=== PATIENT | male | born 1950 | race Caucasian/White ===

== ENCOUNTER 2017-11-30 06:52 | Outpatient (CLI) | payer OTHER ==
--- NOTE | 2017-11-30 11:30 | MRI ---
EXAM: Lumbar spine MRI without contrast. HISTORY: Chronic low back pain with right sciatica. COMPARISON: None. TECHNIQUE: Multiplanar, multisequence MR images were acquired of the lumbar spine without contrast. FINDINGS: Conus medullaris ends at T12-L1 and has normal signal intensity pre canal diameter is deve lopmentally narrow. Five non-rib bearing lumbar vertebra are present. The lumbar vertebra normal in height, AP alignment and intrinsic bone marrow signal. Small benign intraosseous hemangiomas are pr esent at L1 and L3. There is 1.2 mm anterolisthesis of L4 on L5 and a trace retrolisthesis of L5 on S1. There is minor ventral spondylosis in the lumbar spine with focal modic type 1 anterior endplate changes along the inferior L2 anterior endplates. At L4-5, there is mild disc space narrowing and di sc desiccation. At L5-S1, there is mild disc space narrowing. Central disc dessication is present in the remaining lumbar intervertebral discs. The partially visualized liver, spleen and kidneys are unremarkable. No paravertebral masses are pres ent. L1-2: The intervertebral disc is normal. Neural foramina are patent. L2-3: There is a minor disc bulge that is asymmetric to the left which minimally narrows the inferio r neural foramina, greater on the left. There is no central canal stenosis. L3-4: There is minor disc bulge that is asymmetric to the left which minimally narrows the inferior left neural foramen. There is no central canal stenosis. L4-5: There is a mild disc bulge with a right lateral annular fissure and mild to moderate bilateral hypertrophic facet arthropathy and moderate bilateral ligamentum flavum hypertrophy. There is mild bright STIR signal edema around both facet joints and there are small left and tiny right facet effus ions. There is a small synovial cyst along the left L5 lamina at its junction with the L5 posterior spinous process. In this patient with a developmentally narrow canal, these findings cause severe ce ntral canal stenosis and mild to moderate right and mild left neural foraminal stenosis.. AP diamete r of the thecal sac is 3.9 mm. L5-S1: There is a trace retrolisthesis of L5 on S1 which produces minor effacement of the anterior e pidural fat. There is mild tapering of the thecal sac at this level which is small and the thecal sa c ends at S2-3. Mild bilateral facet arthropathy and ligamentum flavum hypertrophy is present withou t foraminal stenosis. IMPRESSION: 1. 1.2 mm anterolisthesis L4 on L5 due to moderate bilateral hypertrophic facet arthropathy which ca uses severe central canal stenosis. 2. Mild to moderate right L4-5 neural foraminal stenosis.
== END 2017-11-30 06:53 | disposition home or self-care (01) ==
LOC: RAD 06:52
PROVIDERS: ATTEND Family Medicine
DX: M54.41 Lumbago with sciatica, right side (principal); G89.29 Other chronic pain

== ENCOUNTER 2017-12-23 08:09 | Outpatient (CLI) ==
--- NOTE | 2017-12-23 11:11 | MRI ---
EXAM: MRI left knee without contrast. HISTORY: Left knee pain. No known recent injury. Meniscus repair 2006. Pain when walking.. TECHNIQUE: Using a local extremity coil on a high field strength magnet multiplanar multisequence MR I was performed of the left knee without intravenous or intra-articular gadolinium contrast. FINDINGS: I do not have prior radiographs of the left knee available for comparison at the time of t his dictation. Within the medial compartment there is partial meniscectomy change involving the posterior horn media l meniscus. This extends to involve the body. Correlate with operative history. Small meniscal fla p tear component displaced over the inferior recess involving the body. Horizontal oblique increased intrameniscal signal along the posterior horn medial meniscus which may reflect stable fibrovascular scar verse recurrent/residual horizontal oblique cleavage tear.. Chondrosis and cartilage ulceratio n over the weightbearing medial tibial plateau. Early productive osteophyte formation. Focal chondr osis with subchondral remodeling/cyst formation posterior nonweight bearing medial femoral condyle. Within the lateral compartment lateral meniscus is intact without discrete surfacing meniscal tear. Focal chondrosis/shallow cartilage ulceration measuring 11 mm over the weightbearing lateral tibial p lateau. Early productive osteophyte formation. Within the patellofemoral compartment the patella seated. The patellar chondrosis/chondromalacia pat [place]w extending from median ridge over the medial facet with cartilage ulceration. Focal subchondral edema over the median ridge. Chondrosis over the superior aspect of the central to medial trochlear groove. Early productive osteophyte formation. Small left effusion. No large osteochondral loose bodies. Arthrofibrosis Hoffa's fat pad. Intact A CL and PCL fibers showing normal orientation. The extensor mechanism is intact. The medial collater al ligament as well as lateral collateral ligament complex and posterolateral corner intact. Complex posterior joint extension/popliteal cyst. Question prior leak/rupture with surrounding posterior so ft tissue edema . Artifact along the skin surface posterolateral corner below the joint line. This may be secondary to foreign body within the soft tissues or overlying the patient. Correlate clinica lly. IMPRESSION: Partial meniscectomy change involving the posterior horn medial meniscus. This extends to involve the body. Correlate with operative history. Small meniscal flap tear component displaced over the inferior recess involving the body. Stable fibrovascular scar verse recurrent/residual hori zontal oblique cleavage tear posterior horn medial meniscus as well. Changes of tricompartmental osteoarthrosis, medial and patellofemoral compartment dominant as describ ed. Small left effusion. Arthrofibrosis Hoffa's fat pad. Intact cruciate and collateral ligaments. Complex posterior joint extension/popliteal cyst. Question prior leak/rupture with surrounding poste rior soft tissue edema. Recommendation is obtainment and correlation with plain film radiographs of the left knee as none are available for comparison at the time of this dictation.
== END 2017-12-23 08:10 | disposition home or self-care (01) ==
LOC: RAD 08:09
PROVIDERS: ATTEND Family Medicine
DX: M25.562 Pain in left knee (principal)

== ENCOUNTER 2018-03-10 11:00 | Outpatient (RCR) ==
--- NOTE | 2018-02-28 13:29 | RS.OPPTEV2 ---
Date of Note: 02/28/18 Visit #: 1 Date of Evaluation: 02/28/18 Payer Source: MEDICARE Treatment Diagnosis: Low back pain with right LE radiating symptoms. History of Condition/Mechanism of Injury:: Patient reports progressive low back pain with right LE radiating pain for several months. Reports no injury to the low back. Prior Level of Function.....Patient was independent with: ADL's, Self Care, Caregiving, Ambulation/Mobility, Community Integration/Access Functional Limitations: Lifting, Sitting, Standing, Ambulation, Community Access /Integration Current Subjective/complaints:: Patient reports having progressive low back pain and symptoms into the right LE. States right LE pain has been constant for about 3 months. He denies tingling or numbness, or weakness in the LE's. States right LE pain runs from the buttock to the back of the knee. States he has not had any injections at this time. He has gone to a chiropractor a few times, which did not give any lasting relief. Reports symptoms are worse with standing and walking. Medical History Medical History: Hypertension, Diabetes, Arthritis Surgical History Comments:: left knee meniscus repair one month ago, previous right knee meniscus repair, right RTC surgery, Left DeQuervain's surgery, CABG 3 years ago. Smoking Status: Never smoker Diagnostic Testing/Imaging:: MRI of lumbar spine w/o contrast on 11/30/17: Impression: 1.2 mm anterolisthesis of L4 on L5 due to moderate bilateral hypertrophic facet arthropathy with causes severe central canal stenosis. Mild to moderate right L4-5 neural foraminal stenosis. Hx Home Medications: Metformin, aspirin, lopressor, lipitor, lisinopril Patient's Goals: Goal is to get relief of right LE and back pain. Pain Assessment - Pain Description Pain Location: low back and right LE Current Pain Intensity: 7/10 Worst Pain Intensity: 9/10 Functional Outcome Measure Oswestry LBP: 46 - G Codes & Severity Modifier G Codes & Modifier: Mobility current CK. Mobility goal CI Source of G Code score: Oswesty LBP scale Gait - Gait Pattern General Gait Pattern Observation: No Deviations/Normal Gait Comments: Ambulates without assistive device. - ROM Comments: Lumbar flexion is WFL's, with most ROM coming from the hips. Demonstrates minimal flexion of the lumbar spine due to muscle guarding. Lumbar extension and right sidebending reproduces pain. Demonstrates good ROM at bilateral hips. - Strength Trunk Rotation: 4 Good Comments: Bilateral LE strength is 5/5. - Special Tests MARILYN Test: Negative Left, Negative Right SLR Test: Negative Left, Positive Right Seated Dural Stretch Test: Negative Left, Positive Right SI Joint Compression: Negative SI Joint Distraction: Negative Palpation Comments:: Patient with tenderness with palpation to the superior gluteal musculature and with central PA's along the lumbar spine at ~ L2-L4. Demonstrates moderate muscle guarding along the lumbar paraspinals bilaterally. Sensation - Sensation Right Lower Extremity: Intact/Normal Left Lower Extremity: Intact/Normal Additional Comments: Additional Comments: SLR in spine bilaterally to 50 degrees. Interventions - Exercise/Activities/Manual Therapy Exercises/Activities: Patient instructed in SKTC, HS, and lower trunk rotation stretch. Instructed to perform SKTC and HS on both legs, but the trunk rotation stretch to the left only. Manual Therapy: NA HOME EXERCISE PROGRAM: SKTC and HS on both legs, but the trunk rotation stretch to the left only. - Charges Timed Code Treatment Minutes: 0 Total Treatment Time: 40 mins Procedures billed for this date of service:: EVAL Low EVALUATION COMPLEXITY LEVEL EVALUATION COMPLEXITY LEVEL: HISTORY: Low, EXAM OF BODY SYSTEMS: Low, CLINICAL PRESENTATION: Low, CLINICAL DECISION MAKING: Low Assessment Assessment: Patient presents to therapy with a diagnosis of spinal stenosis of the lumbar region, degeneration of lumbar intervertebral disc. He presents with reports of right low back and LE pain. Right LE pain is constant. Describes limited tolerance for standing and walking due to increased pain. He presents with limited lumbar flexion due to moderate muscle guarding along the lumbar spine. Demonstrates potential to benefit from HS stretching to reduce pressure on the spine. MRI shows L4-5 with severe central canal stenosis and mild to moderate right and mild left neural foraminal stenosis. Patient may also benefit from lumbar traction, as ordered, to get relief of symptoms. Patient Education: Education of diagnosis, Body/Joint mechanics, Home Exercise Program, Home Safety, Activity Modification, Education of Plan of Care Rehab Potential: Good Short Term Goals Goal #1: Pt independent and compliant with HEP Goal to be met by: 03/14/18 Goal #2: Right LE symptoms no longer constant. Goal to be met by: 03/14/18 Goal #3: SLR bilaterally increased to 55-60 degrees. Goal to be met by: 03/14/18 Goal #4: Trunk strength 4+/5. Goal to be met by: 03/14/18 Lap Maker Goals Goal #1: Pt knows HEP and to continue ex's to maintain functional level at D/C. Goal to be met by: 04/19/18 Goal #2: Score on Oswestry LBP scale improved to 19% or less. Goal to be met by: 04/19/18 Goal #3: Pt will tolerate amb. community distances without right LBP or LE pain. Goal to be met by: 04/19/18 Goal #4: Pt will demonstrate good understanding of back safety and body mechanics. Goal to be met by: 04/19/18 Plan - Treatment to be Provided Procedures: Therapeutic Exercises, Therapeutic Activity, Manual Therapy, Patient Education Modalities: Electrical Stimulation, Ultrasound/Phonophoresis, Cryotherapy, Hot Packs, Mechanical Traction (Lumbar) - Treatment Plan Frequency: 2-3 X week Duration: 6 weeks ORDER # VISITS AND/OR THROUGH DATE: 04/19/18 - Treatment Code (1) Lumbar radiculopathy, right Code(s): M54.16 - RADICULOPATHY, LUMBAR REGION Comments: M54.16 (2) Lumbar spinal stenosis Code(s): M48.06 - SPINAL STENOSIS, LUMBAR REGION * DO NOT USE * Qualifiers: Neurogenic claudication status: without neurogenic claudication Qualified Code(s): M48.061 - Spinal stenosis, lumbar region without neurogenic claudication (3) Degeneration of lumbar intervertebral disc Code(s): M51.36 - OTHER INTERVERTEBRAL DISC DEGENERATION, LUMBAR REGION Comments: M51.36
--- NOTE | 2018-03-01 11:23 | RS.OPPTDN ---
Subjective Date of Note: 03/01/18 Visit #: 2 Date of Evaluation: 02/28/18 Payer Source: MEDICARE Treatment Diagnosis: Low back pain with right LE radiating symptoms. Current Subjective/complaints:: Patient states his pain is at the R LB and to the fold of the R buttock, but can go to the mid posterior thigh. He says standing and walking are the worst and often shifts his weight in these positions and in sitting. He said he has not tried heat or ice yet for his back pain. Reports L knee is healing well with recent scope and he prefers to lay/sleep on this side. - Treatment Modality: Electrical Stim Unattended Parameters/Method Applied: IFC @ 14-17 ma x 20 mins to the lumbar paraspinals Patient Position: Left Sidelying - Heat/Cryotherapy Treatment: Hot Pack Interventions - Exercise/Activities/Manual Therapy Exercises/Activities: Patient begins with passive stretching bilaterally, but with focus to the R LE: SKTC, HS, Piriformis, Fig 4, Lower trunk rotation (to the L). Discussed diagnosis, anatomy of spine, proper body mechanics, and reviewed HEP. Total minutes of Exercise: 18 Manual Therapy: NA HOME EXERCISE PROGRAM: SKTC and HS on both legs, but the trunk rotation stretch to the left only. - Charges Timed Code Treatment Minutes: 18 Total Treatment Time: 38 Procedures billed for this date of service:: hp, estim (un), ex Assessment: Patient presents with pain to the lumbar region more so to the R and pain extending to the R gluteal fold. Pt has difficulty with prolonged standing, walking. Relief comes with sitting, but can't also sit for too long either. He jennifer stretching well. Rotation stretches provided more of a response along with HS somewhat inflexible. He should improve with further modalities and therex for the low back and R LE progressing with LE strength as jennifer. Patient Education: Education of diagnosis, Body/Joint mechanics, Home Exercise Program, Education of Plan of Care Patient demonstrates compliance with HEP?: Yes Short Term Goals Goal #1: Pt independent and compliant with HEP Goal to be met by: 03/14/18 Progress towards Goal:: Progressing Goal #2: Right LE symptoms no longer constant. Goal to be met by: 03/14/18 Goal #3: SLR bilaterally increased to 55-60 degrees. Goal to be met by: 03/14/18 Goal #4: Trunk strength 4+/5. Goal to be met by: 03/14/18 Group Home Goals Goal #1: Pt knows HEP and to continue ex's to maintain functional level at D/C. Goal to be met by: 04/19/18 Goal #2: Score on Oswestry LBP scale improved to 19% or less. Goal to be met by: 04/19/18 Goal #3: Pt will tolerate amb. community distances without right LBP or LE pain. Goal to be met by: 04/19/18 Goal #4: Pt will demonstrate good understanding of back safety and body mechanics. Goal to be met by: 04/19/18 Plan PLAN OF CARE EXPIRES ON:: 04/19/18 ORDER # VISITS AND/OR THROUGH DATE: 04/19/18 PLAN: Continue BIW
--- NOTE | 2018-03-03 11:30 | RS.OPPTDN ---
Subjective Date of Note: 03/03/18 Visit #: 3 Date of Evaluation: 02/28/18 Payer Source: MEDICARE Treatment Diagnosis: Low back pain with right LE radiating symptoms. Current Subjective/complaints:: Patient states his pain is not bad today. Reports very little to the R low back and to superior glut this morning. Patient says he feels relief from treatment. Pain Assessment - Pain Description Pain Location: reduced to low level. bilateral lumbar, but more so to the R lumbar and superior glut - Treatment Modality: Electrical Stim Unattended Parameters/Method Applied: IFC @ 17 ma x 20 mins Treatment Area: lumbar and superior glut Patient Position: Left Sidelying - Heat/Cryotherapy Treatment: Hot Pack (with estim) Interventions - Exercise/Activities/Manual Therapy Exercises/Activities: Patient begins with passive stretching bilaterally, but with focus to the R LE: SKTC, HS, Piriformis, Fig 4, Lower trunk rotation (to the L). Began pillow squeezes, isometric hip abd, isometric hip flexion x 10. Gave green tband for hooklying hip abd for home. Total minutes of Exercise: 20 Manual Therapy: NA HOME EXERCISE PROGRAM: SKTC and HS on both legs, but the trunk rotation stretch to the left only. - Charges Timed Code Treatment Minutes: 20 Total Treatment Time: 40 Procedures billed for this date of service:: hp, estim (un), ex Assessment: Patient appears to respond to treatment as he is having less intense pain and pain is not radiating as far down the R LE, stopping at the superior glut this morning. He jennifer all stretching without c/o. Exercise added to HEP with tband for added stability. Patient Education: Education of diagnosis, Body/Joint mechanics, Home Exercise Program Short Term Goals Goal #1: Pt independent and compliant with HEP Goal to be met by: 03/14/18 Progress towards Goal:: Progressing Goal #2: Right LE symptoms no longer constant. Goal to be met by: 03/14/18 Progress towards Goal:: Progressing Goal #3: SLR bilaterally increased to 55-60 degrees. Goal to be met by: 03/14/18 Progress towards Goal:: Progressing Goal #4: Trunk strength 4+/5. Goal to be met by: 03/14/18 Penitentiary Goals Goal #1: Pt knows HEP and to continue ex's to maintain functional level at D/C. Goal to be met by: 04/19/18 Goal #2: Score on Oswestry LBP scale improved to 19% or less. Goal to be met by: 04/19/18 Goal #3: Pt will tolerate amb. community distances without right LBP or LE pain. Goal to be met by: 04/19/18 Goal #4: Pt will demonstrate good understanding of back safety and body mechanics. Goal to be met by: 04/19/18 Plan PLAN OF CARE EXPIRES ON:: 04/19/18 ORDER # VISITS AND/OR THROUGH DATE: 04/19/18 PLAN: Patient to continue BIW for modalities and therex for improved flexibility and trunk stability activity.
--- NOTE | 2018-03-07 09:53 | RS.OPPTDN ---
Subjective Date of Note: 03/07/18 Visit #: 4 Date of Evaluation: 02/28/18 Payer Source: MEDICARE Treatment Diagnosis: Low back pain with right LE radiating symptoms. Current Subjective/complaints:: Patient says his pain has not been bad over the weekend at all. Reports that he is satisfied with the relief he has had. States pain is staying at the R LB and superior to mid glut. He denies having pain extending to the posterior mid thigh. - Treatment Modality: Electrical Stim Unattended Parameters/Method Applied: Hivolt 2 large pads for the R lower lumbar paraspinals and superior glut @ 210 pk volts x 20 mins Patient Position: Left Sidelying - Heat/Cryotherapy Treatment: Hot Pack (with estim) Interventions - Exercise/Activities/Manual Therapy Exercises/Activities: Patient continues with passive stretching bilaterally, but with focus to the R LE: SKTC, HS, Piriformis, Fig 4, Lower trunk rotation ( to the L). Continued with ball squeezes, isometric hip abd, isometric hip flexion x 10. Began bridging, SAQ 5# for the R, 3# for the L, green tband for DF all 2x10. Began leg presses bilaterally @ 60#, 75, then 90 x 10 reps. Total minutes of Exercise: 24 Manual Therapy: NA HOME EXERCISE PROGRAM: SKTC and HS on both legs, but the trunk rotation stretch to the left only. - Charges Timed Code Treatment Minutes: 24 Total Treatment Time: 44 Procedures billed for this date of service:: Hp, estim (un), EX Assessment: Patient experiencing more localized pain currently as well as less intense. Patient is able to walk about 1 mile before he has some discomfort. He jennifer all added therex without elevated pain. Only slight fatigue noted in LEs. Mild intermittent popping with SAQ for the L knee. Patient Education: Body/Joint mechanics, Education of Plan of Care Patient demonstrates compliance with HEP?: Yes Short Term Goals Goal #1: Pt independent and compliant with HEP Goal to be met by: 03/14/18 Progress towards Goal:: Progressing Goal #2: Right LE symptoms no longer constant. Goal to be met by: 03/14/18 Progress towards Goal:: Partially Met Goal #3: SLR bilaterally increased to 55-60 degrees. Goal to be met by: 03/14/18 Progress towards Goal:: Progressing Goal #4: Trunk strength 4+/5. Goal to be met by: 03/14/18 Progress towards Goal:: Progressing Assisted Goals Goal #1: Pt knows HEP and to continue ex's to maintain functional level at D/C. Goal to be met by: 04/19/18 Goal #2: Score on Oswestry LBP scale improved to 19% or less. Goal to be met by: 04/19/18 Goal #3: Pt will tolerate amb. community distances without right LBP or LE pain. Goal to be met by: 04/19/18 Goal #4: Pt will demonstrate good understanding of back safety and body mechanics. Goal to be met by: 04/19/18 Plan PLAN OF CARE EXPIRES ON:: 04/19/18 ORDER # VISITS AND/OR THROUGH DATE: 04/19/18 PLAN: Patient to continue TIW for 2 more weeks
--- NOTE | 2018-03-09 10:11 | RS.OPPTDN ---
Subjective Date of Note: 03/09/18 Visit #: 5 Date of Evaluation: 02/28/18 Payer Source: MEDICARE Treatment Diagnosis: Low back pain with right LE radiating symptoms. Current Subjective/complaints:: Patient says he is hurting more everywhere today. Rates pain 5/10. Pain continues to be more isolated to the R lower lumbar paraspinals and superior glut. No longer going down the mid posterior thigh. He says some form of pain is always present, but varies in intensity. Denies any pain from previous session with using leg press. Pain Assessment - Pain Description Pain Description: Aching, Acute - Treatment Modality: Electrical Stim Unattended Parameters/Method Applied: hivolt 2 large pads to the R lower lumbar region and superior glut @ 190-200 pk volts x 20 mins Patient Position: Left Sidelying - Heat/Cryotherapy Treatment: Hot Pack Interventions - Exercise/Activities/Manual Therapy Exercises/Activities: Patient continues with passive stretching bilaterally, but with focus to the R LE: SKTC, HS, Piriformis, Fig 4, Lower trunk rotation ( to the L). Continued with ball squeezes, isometric hip abd, isometric hip flexion x 10. Continued bridging, SAQ 5# for the R, 3# for the L, green tband for DF all 2x10. Continued leg presses bilaterally @ 75#, then 90 3x 10 reps. Total minutes of Exercise: 25 Manual Therapy: NA HOME EXERCISE PROGRAM: SKTC and HS on both legs, but the trunk rotation stretch to the left only. - Charges Timed Code Treatment Minutes: 25 Total Treatment Time: 45 Procedures billed for this date of service:: hp, estim (un), ex2 Assessment: Patient's pain is heightened today, but is generally throughout his body. He continues to have pain more isolated to the R lower lumbar region and does not increase with activity here or at home. May modify treatment to u/s to further decrease pain since it is more local. Patient agreeable and explained benefits of u/s. Patient Education: Education of diagnosis, Body/Joint mechanics, Education of Plan of Care Patient demonstrates compliance with HEP?: Yes Short Term Goals Goal #1: Pt independent and compliant with HEP Goal to be met by: 03/14/18 Progress towards Goal:: Progressing Goal #2: Right LE symptoms no longer constant. Goal to be met by: 03/14/18 Progress towards Goal:: Partially Met Goal #3: SLR bilaterally increased to 55-60 degrees. Goal to be met by: 03/14/18 Progress towards Goal:: Progressing Goal #4: Trunk strength 4+/5. Goal to be met by: 03/14/18 Progress towards Goal:: Progressing [facility] Goals Goal #1: Pt knows HEP and to continue ex's to maintain functional level at D/C. Goal to be met by: 04/19/18 Goal #2: Score on Oswestry LBP scale improved to 19% or less. Goal to be met by: 04/19/18 Goal #3: Pt will tolerate amb. community distances without right LBP or LE pain. Goal to be met by: 04/19/18 Goal #4: Pt will demonstrate good understanding of back safety and body mechanics. Goal to be met by: 04/19/18 Plan PLAN OF CARE EXPIRES ON:: 04/19/18 ORDER # VISITS AND/OR THROUGH DATE: 04/19/18 PLAN: Continue tomorrow and next week possibly trying u/s to further decrease his pain closer to the spine and progressing strengthening for the LE's and trunk.
--- NOTE | 2018-03-11 11:13 | RS.OPPTDN ---
Subjective Date of Note: 03/10/18 Visit #: 6 Date of Evaluation: 02/28/18 Payer Source: MEDICARE Treatment Diagnosis: Low back pain with right LE radiating symptoms. Current Subjective/complaints:: Patient says he is feeling better today. REports less back pain and describes it as "low." Pain Assessment - Pain Description Pain Location: R sided low back and superior glut. Rarely extends to posterior LE now. - Treatment Modality: Ultrasound Parameters/Method Applied: continuous @ 1.5 w/cm2 x 12 mins to R lumbar paraspinals and superior glut Patient Position: Left Sidelying - Heat/Cryotherapy Treatment: Hot Pack (12 mins over the R LB/hip in sidelying) Interventions - Exercise/Activities/Manual Therapy Exercises/Activities: Patient continues with passive stretching bilaterally, but with focus to the R LE: SKTC, HS, Piriformis, Fig 4, Lower trunk rotation ( to the L). Continued with ball squeezes, isometric hip abd, isometric hip flexion x 10. Continued bridging, SAQ 5# for the R, 3# for the L, green tband for DF and hooklying hip abd all 2x10. Continued leg presses bilaterally @ 75# , then 90 3x 10 reps. Progressed to 105# x 10 reps. Total minutes of Exercise: 24 Manual Therapy: NA HOME EXERCISE PROGRAM: SKTC and HS on both legs, but the trunk rotation stretch to the left only. - Charges Timed Code Treatment Minutes: 36 Total Treatment Time: 48 Procedures billed for this date of service:: hp, u/s, ex Assessment: Modified treatment to include u/s today since pain is localizing. He is tolerating progression of therex. He demo improved flexibility of HS and piriformis for the R side. Good resistance with all isometrics. Patient Education: Body/Joint mechanics, Home Exercise Program, Education of Plan of Care Patient demonstrates compliance with HEP?: Yes Short Term Goals Goal #1: Pt independent and compliant with HEP Goal to be met by: 03/14/18 Progress towards Goal:: Progressing Goal #2: Right LE symptoms no longer constant. Goal to be met by: 03/14/18 Progress towards Goal:: Partially Met Goal #3: SLR bilaterally increased to 55-60 degrees. Goal to be met by: 03/14/18 Progress towards Goal:: Progressing Goal #4: Trunk strength 4+/5. 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 Goal to be met by: 04/19/18 Goal #2: Score on Oswestry LBP scale improved to 19% or less. Goal to be met by: 04/19/18 Goal #3: Pt will tolerate amb. community distances without right LBP or LE pain. Goal to be met by: 04/19/18 Goal #4: Pt will demonstrate good understanding of back safety and body mechanics. Goal to be met by: 04/19/18 Plan PLAN OF CARE EXPIRES ON:: 04/19/18 ORDER # VISITS AND/OR THROUGH DATE: 04/19/18 PLAN: Patient to continue next week for u/s due to localizing pain and progressive therex for the back and LEs.
== END 2018-03-11 23:59 ==
PROVIDERS: ATTEND Neurological Surgery
DX: M48.061 Spinal stenosis, lumbar region without neurogenic claudication (principal); M51.37 Other intervertebral disc degeneration, lumbosacral region; Z68.30 Body mass index [BMI] 30.0-30.9, adult; Z78.9 Other specified health status; M54.16 Radiculopathy, lumbar region

== ENCOUNTER 2018-03-25 08:15 | Outpatient (RCR) | payer OTHER ==
--- NOTE | 2018-03-16 11:09 | RS.OPPTDN ---
Subjective Date of Note: 03/16/18 Visit #: 7 Date of Evaluation: 02/28/18 Payer Source: MEDICARE Treatment Diagnosis: Low back pain with right LE radiating symptoms. Current Subjective/complaints:: Patient says u/s must have helped because his pain was little to none over the weekend. Denies pain going to the posterior thigh. He says he is able to walk more without the pain and difficulty he had. Pain Assessment - Pain Description Pain Location: R lumbar at waistline - Treatment Modality: Ultrasound Parameters/Method Applied: continuous @ 1.5 w/cm2 x 10 mins to the R lumbar paraspinals Patient Position: Left Sidelying - Heat/Cryotherapy Treatment: Hot Pack (12 mins across the R low back in sidelying) Interventions - Exercise/Activities/Manual Therapy Exercises/Activities: Patient continues with passive stretching bilaterally, but with focus to the R LE: SKTC, HS, Piriformis, Fig 4, Lower trunk rotation ( to the L). Continued with ball squeezes, isometric hip abd, isometric hip flexion x 10. Continued bridging 5# on abdomen, SAQ 5# bilaterally,and hooklying hip abd with blue tband all 2x10. Continued leg presses bilaterally starting now @ 90#, then 105, and 115#, 3x 10 reps. Total minutes of Exercise: 26 Manual Therapy: NA HOME EXERCISE PROGRAM: SKTC and HS on both legs, but the trunk rotation stretch to the left only. - Charges Timed Code Treatment Minutes: 36 Total Treatment Time: 48 Procedures billed for this date of service:: hp, u/s, ex2 Assessment: Patient progressing well with reduced back pain and maintaining it more locally. He is able to amb more prolonged period before difficulty or pain is present. He is able to progress with resistive exercises. Patient Education: Education of Plan of Care Patient demonstrates compliance with HEP?: Yes Short Term Goals Goal #1: Pt independent and compliant with HEP Goal to be met by: 03/14/18 Progress towards Goal:: Met Goal #2: Right LE symptoms no longer constant. Goal to be met by: 03/14/18 Progress towards Goal:: Met Goal #3: SLR bilaterally increased to 55-60 degrees. Goal to be met by: 03/14/18 Progress towards Goal:: Met Goal #4: Trunk strength 4+/5. Goal to be met by: 03/14/18 Progress towards Goal:: Progressing Outside Deliverer Goals Goal #1: Pt knows HEP and to continue ex's to maintain functional level at D/C. Goal to be met by: 04/19/18 Progress towards goal: Progressing Goal #2: Score on Oswestry LBP scale improved to 19% or less. Goal to be met by: 04/19/18 Comments: Reassess next session Goal #3: Pt will tolerate amb. community distances without right LBP or LE pain. Goal to be met by: 04/19/18 Progress towards goal: Progressing Goal #4: Pt will demonstrate good understanding of back safety and body mechanics. Goal to be met by: 04/19/18 Progress towards goal: Progressing Plan PLAN OF CARE EXPIRES ON:: 04/19/18 ORDER # VISITS AND/OR THROUGH DATE: 04/19/18 PLAN: Patient to continue x 3 more sessions
--- NOTE | 2018-03-18 10:58 | RS.OPPTDN ---
Subjective Date of Note: 03/18/18 Visit #: 8 Date of Evaluation: 02/28/18 Payer Source: MEDICARE Treatment Diagnosis: Low back pain with right LE radiating symptoms. Current Subjective/complaints:: Patient says he hurts today more than any other day since he began therapy. He reports pain throughout his body (joint delacruz). He says he called to make an appt with Dr. Galeano and will go today. - Treatment Modality: Ultrasound Parameters/Method Applied: continuous @ 1.5 w/cm2 locally at the R L4/L5 paraspinals x 12 mins Patient Position: Left Sidelying - Heat/Cryotherapy Treatment: Hot Pack (across the low back and over the R hip and L knee x 15 mins in L sidelying) Interventions - Exercise/Activities/Manual Therapy Exercises/Activities: Modified treatment to only passive stretching bilaterally today, but with focus to the R LE: SKTC, HS, Piriformis, Fig 4, Lower trunk rotation (to the L). Will resume exercises next week. Total minutes of Exercise: 15 Manual Therapy: NA HOME EXERCISE PROGRAM: SKTC and HS on both legs, but the trunk rotation stretch to the left only. - Charges Timed Code Treatment Minutes: 27 Total Treatment Time: 42 Procedures billed for this date of service:: hp, u/s, ex Assessment: Patient with elevated pain generally throughout the body. Decribes ache through the low back, bilateral knees. He has limitation with R hamstring flexibility today and more sensitivity to the L LE with stretches. We avoided strengthening exercises today due to this increase in pain. He will be seeing Dr. Galeano today regarding the L knee. Lumbar pain is local at the L4/L5 paraspinals without radiculopathy. Patient Education: Education of Plan of Care Patient demonstrates compliance with HEP?: Yes Short Term Goals Goal #1: Pt independent and compliant with HEP Goal to be met by: 03/14/18 Progress towards Goal:: Met Goal #2: Right LE symptoms no longer constant. Goal to be met by: 03/14/18 Progress towards Goal:: Met Goal #3: SLR bilaterally increased to 55-60 degrees. Goal to be met by: 03/14/18 Progress towards Goal:: Met Goal #4: Trunk strength 4+/5. 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 Goal to be met by: 04/19/18 Progress towards goal: Progressing Goal #2: Score on Oswestry LBP scale improved to 19% or less. Goal to be met by: 04/19/18 Comments: assess next week Goal #3: Pt will tolerate amb. community distances without right LBP or LE pain. Goal to be met by: 04/19/18 Progress towards goal: Progressing Goal #4: Pt will demonstrate good understanding of back safety and body mechanics. Goal to be met by: 04/19/18 Progress towards goal: Progressing Plan PLAN OF CARE EXPIRES ON:: 04/19/18 ORDER # VISITS AND/OR THROUGH DATE: 04/19/18 PLAN: Patient to continue x 2 more sessions per order and LTG dates. Patient to be reassessed next week.
--- NOTE | 2018-03-23 09:50 | RS.OPPTDN ---
Subjective Date of Note: 03/23/18 Visit #: 9 Date of Evaluation: 02/28/18 Payer Source: MEDICARE Treatment Diagnosis: Low back pain with right LE radiating symptoms. Current Subjective/complaints:: Patient says he received an injection to the L knee last week due to elevated pain. He says it immediately helped, but later was quite sore. He c/o mild pain to his back this morning continuing to be more R sided. States he has resumed walking ~1 1/2 [place] - Treatment Modality: Ultrasound Parameters/Method Applied: continuous @ 1.5 w/cm2 x 12 mins to R lower lumbar paraspinals and superior glut region. Patient Position: Left Sidelying - Heat/Cryotherapy Treatment: Hot Pack (low back and over R hip/buttock in sidelying x 15 mins) Interventions - Exercise/Activities/Manual Therapy Exercises/Activities: Patient receives passive stretching bilaterally today, but with focus to the R LE: SKTC, HS, Piriformis, Fig 4, Lower trunk rotation ( to the L), heel cord stretches. Patient resumes: Ball squeezes, bridging with 4 # on abdomen, SLR, SAQ 4#, Green tband for DF and hip abd in hooklying all 2x10 reps and bilaterally. Resumed leg presses 90, 105, and 120# x 12 reps. Total minutes of Exercise: 25 Manual Therapy: NA HOME EXERCISE PROGRAM: SKTC and HS on both legs, but the trunk rotation stretch to the left only. - Charges Timed Code Treatment Minutes: 37 Total Treatment Time: 52 Procedures billed for this date of service:: hp, u/s, ex2 Assessment: Patient has recently received injection to the L knee and has had improved symptoms. Flare up of back pain from last week also has improved. Pain is maintained at the R superior glut without pain radiating to the R mid thigh now. He has resumed walking about 1 1/2 miles 3 times per week working up to 3-4 miles. Patient Education: Body/Joint mechanics, Education of Plan of Care Patient demonstrates compliance with HEP?: Yes Short Term Goals Goal #1: Pt independent and compliant with HEP Goal to be met by: 03/14/18 Progress towards Goal:: Met Goal #2: Right LE symptoms no longer constant. Goal to be met by: 03/14/18 Progress towards Goal:: Met Goal #3: SLR bilaterally increased to 55-60 degrees. Goal to be met by: 03/14/18 Progress towards Goal:: Met Goal #4: Trunk strength 4+/5. Goal to be met by: 03/14/18 Progress towards Goal:: Progressing Horse Racer Goals Goal #1: Pt knows HEP and to continue ex's to maintain functional level at D/C. Goal to be met by: 04/19/18 Progress towards goal: Progressing Goal #2: Score on Oswestry LBP scale improved to 19% or less. Goal to be met by: 04/19/18 Comments: reassess Wednesday Goal #3: Pt will tolerate amb. community distances without right LBP or LE pain. Goal to be met by: 04/19/18 Progress towards goal: Progressing Goal #4: Pt will demonstrate good understanding of back safety and body mechanics. Goal to be met by: 04/19/18 Progress towards goal: Progressing Plan PLAN OF CARE EXPIRES ON:: 04/19/18 ORDER # VISITS AND/OR THROUGH DATE: 04/19/18 PLAN: Patient to continue progressing therex as it did not elevate his pain today with resuming. He has 1 session remaining.
--- NOTE | 2018-03-25 13:36 | RS.OPPTDN ---
Subjective Date of Note: 03/25/18 Visit #: 10 Date of Evaluation: 02/28/18 Payer Source: MEDICARE Treatment Diagnosis: Low back pain with right LE radiating symptoms. Current Subjective/complaints:: Patient says he flare up of pain to his back last night while he was sitting for 1 1/2 hours watching a ball game. He states he has very little pain this morning though. He states that he is pleased with his progress at this point. - Treatment Modality: Ultrasound Parameters/Method Applied: continuous @ 1.5 w/cm2 x 10 mins to the R lower lumbar paraspinals and superior glut region Patient Position: Left Sidelying - Heat/Cryotherapy Treatment: Hot Pack ( over the R low back and buttock in sidelying x 15 mins) Interventions - Exercise/Activities/Manual Therapy Exercises/Activities: Patient receives passive stretching bilaterally today, but with focus to the R LE: SKTC, HS, Piriformis, Fig 4, Lower trunk rotation ( to the L), heel cord stretches. Patient resumes: Ball squeezes, bridging with 4 # on abdomen, SLR, SAQ 4#, Green tband for DF and hip abd in hooklying all 2x10 reps. Assessed trunk strength, SLR flexibility according to goals, and Oswestry Scale. Patient given blue tband to advance to and HEP. Total minutes of Exercise: 24 Manual Therapy: NA HOME EXERCISE PROGRAM: SKTC and HS on both legs, but the trunk rotation stretch to the left only. - Objective Findings Observations,measurements,etc.: Oswestry: 16 or 32% impairment. Improved one category level - Charges Timed Code Treatment Minutes: 34 Total Treatment Time: 49 Procedures billed for this date of service:: hp, u/s, ex2 Assessment: Patient has demo improvement with Function score on Oswestry one category level with deficits still in jennifer to travelling, lifting, and standing. But also has had improvements in 5 levels of walking, general pain level, radicular symptoms decreased and localizing from the posterior mid thigh to now at the R superior glut. He has returned to walking 1 1/2 miles TI[place] without difficulty. Patient Education: Body/Joint mechanics, Home Exercise Program, Education of Plan of Care Patient demonstrates compliance with HEP?: Yes Short Term Goals Goal #1: Pt independent and compliant with HEP Goal to be met by: 03/14/18 Progress towards Goal:: Met Goal #2: Right LE symptoms no longer constant. Goal to be met by: 03/14/18 Progress towards Goal:: Met Goal #3: SLR bilaterally increased to 55-60 degrees. Goal to be met by: 03/14/18 Progress towards Goal:: Met Goal #4: Trunk strength 4+/5. Goal to be met by: 03/14/18 Progress towards Goal:: Progressing Longterm Goals Goal #1: Pt knows HEP and to continue ex's to maintain functional level at D/C. Goal to be met by: 04/19/18 Progress towards goal: Met Goal #2: Score on Oswestry LBP scale improved to 19% or less. Goal to be met by: 04/19/18 Progress towards goal: Progressing Goal #3: Pt will tolerate amb. community distances without right LBP or LE pain. Goal to be met by: 04/19/18 Progress towards goal: Met Goal #4: Pt will demonstrate good understanding of back safety and body mechanics. Goal to be met by: 04/19/18 Progress towards goal: Met Plan PLAN OF CARE EXPIRES ON:: 04/19/18 ORDER # VISITS AND/OR THROUGH DATE: 04/19/18 PLAN: D/c
--- NOTE | 2018-03-29 11:39 | RS.OPPTDC ---
Date of Discharge: 03/25/18 Date of Evaluation: 02/28/18 Number of Visits: 10 Treatment Diagnosis: Low back pain with right LE radiating symptoms. Current Complaints/Gains: Mr. Vera reports pain seldom goes to the right buttock and no longer into the right posterior aspect of the thigh. He reports his pain is mild to the right low back and superior gluteal region. He has returned to walking 1.5 miles, three times a week. Functional Outcome Measure Oswestry LBP: 32 - G Codes & Severity Modifier G Codes & Modifier: Mobility D/C CJ. Mobility goal CI Source of G Code score: oswestry Interventions - Exercise/Activities/Manual Therapy Exercises/Activities: Na Manual Therapy: NA HOME EXERCISE PROGRAM: SKTC and HS on both legs, but the trunk rotation stretch to the left only. - Objective Findings Observations,measurements,etc.: Trunk strength 4+/5. HS flexibility on the right SLR to 60 degrees. - Charges Timed Code Treatment Minutes: NA Total Treatment Time: NA Procedures billed for this date of service:: NA Assessment Assessment: Patient reports much improvement with pain since receiving therapy. He is now able to return to walking three times a week without back or LE symptoms. He made great progress towards all of his goals and he is able to continue his HEP. Short Term Goals Goal #1: Pt independent and compliant with HEP Goal to be met by: 03/14/18 Progress towards Goal:: Met Goal #2: Right LE symptoms no longer constant. Goal to be met by: 03/14/18 Progress towards Goal:: Met Goal #3: SLR bilaterally increased to 55-60 degrees. Goal to be met by: 03/14/18 Progress towards Goal:: Met Goal #4: Trunk strength 4+/5. Goal to be met by: 03/14/18 Progress towards Goal:: Met Piece Maker Goals Goal #1: Pt knows HEP and to continue ex's to maintain functional level at D/C. Goal to be met by: 04/19/18 Progress towards goal: Met Goal #2: Score on Oswestry LBP scale improved to 19% or less. Goal to be met by: 04/19/18 Progress towards goal: Not Met Goal #3: Pt will tolerate amb. community distances without right LBP or LE pain. Goal to be met by: 04/19/18 Progress towards goal: Met Goal #4: Pt will demonstrate good understanding of back safety and body mechanics. Goal to be met by: 04/19/18 Progress towards goal: Met Plan Reason for Discharge:: No Further Skilled Therapy Indicated
== END 2018-04-10 23:59 ==
PROVIDERS: ATTEND Neurological Surgery
DX: M48.061 Spinal stenosis, lumbar region without neurogenic claudication (principal); M51.37 Other intervertebral disc degeneration, lumbosacral region; Z68.30 Body mass index [BMI] 30.0-30.9, adult; Z78.9 Other specified health status